=== PATIENT | female | born 1955 | race Caucasian/White ===

== ENCOUNTER 2019-02-06 06:40 | Inpatient (IN) | payer MEDICAID ==
[~2019-02-06] VITALS: Ht 160 cm; Wt 57.2 kg
[~2019-02-06 06:40] MED LIST: ALIR75PE SQ; AMLO10TA8 PO; ASPI325T17 PO; ATEN25TA PO; CETI10CA PO; ESTR1PAT4; ESTR30CR TP; HYDR25TA6 PO; OMEP-110 PO
[2019-02-06] MEDS ORDERED: ONDANSETRON 2MG/ML, 2ML ONE (07:08)
[2019-02-06] MEDS ORDERED: FAMOTIDINE 20 MG/2 ML ONE (07:09)
[2019-02-06] MEDS ORDERED: MORPHINE SULFATE 4 MG/ML, 1ML ONE (07:09)
[2019-02-06] MEDS ORDERED: SODIUM CHLORIDE FLUSH 10ML SYR IVF ONE (07:30)
[2019-02-06] MEDS ORDERED: MORPHINE SULFATE 4 MG/ML, 1ML IVPush PRN (07:30)
[2019-02-06] MEDS ORDERED: SODIUM CHLORIDE 0.9% 1,000ML IVBOLUS ONE (07:30)
[2019-02-06] MEDS ORDERED: FAMOTIDINE 20 MG/2 ML IVP ONE (07:30)
[2019-02-06] MEDS ORDERED: ONDANSETRON 2MG/ML, 2ML IVPush ONE (07:30)
--- NOTE | 2019-02-06 07:37 | NUR ---
PT. IS A & O X 4 WITH C/O ABD PAIN WITH ASSOCIATED NAUSEA AND VOMITING FOR 2 WEEKS. PT. IS PINK,WARM AND DRY. LUNGS ARE CTA. MM ARE PINK AND MOIST WITH PULSES +2 THROUGHOUT. PT.'S ABD. IS SOFT AND FLAT WITH BS + X 4 QUADS. IV ACCESS ESTABLISHED. PT. WAS MEDICATED FOR PAIN ORDERED. LABS DRAWN AND SENT. US TECH AT THE BEDSIDE DOING HER US OF THE ABD. PT. IS RESTING WITH THE PULSE OX IN PLACE AND BP CUFF IN PLACE. SR ARE UP X 2. NS BOLUS IS INFUSING.
[2019-02-06 07:41] LABS: ALANINE AMINOTRANSFERASE 17 U/L (12-78); ALBUMIN 3.3 g/dL (3.4-5.0); CALCIUM 9.4 mg/dL (8.5-10.1); CHLORIDE 84 mmol/L (98-107); CREATININE 0.99 mg/dL (0.55-1.02)
[2019-02-06 07:42] LABS: BASOPHILS # (AUTO) 0.04 x10^3/uL (0-0.1); BASOPHILS % (AUTO) 0 % (0-1); EOSINOPHILS # (AUTO) 0.11 x10^3/uL (0-0.4); EOSINOPHILS % (AUTO) 1 % (1-7); LYMPHOCYTES # (AUTO) 1.72 x10^3/uL (1-3.4); LYMPHOCYTES % (AUTO) 16 % (22-44); MD NO; MEAN CORPUSCULAR HEMOGLOBIN 32.6 pg (27.0-34.8); MEAN CORPUSCULAR HGB CONC 33.8 g/dL (32.4-35.8); MEAN CORPUSCULAR VOLUME 96.7 fL (80-100); MEAN PLATELET VOLUME 7.8 fL (7.4-10.4); MONOCYTES # (AUTO) 0.99 x10^3/uL (0.2-0.8); MONOCYTES % (AUTO) 9 % (2-9); NEUTROPHILS # (AUTO) 7.68 x10^3/uL (1.8-6.8); NEUTROPHILS % (AUTO) 73 % (42-75); PLATELET COUNT 566 x10^3/uL (130-400); RED BLOOD COUNT 4.38 x10^6/uL (3.82-5.3)
[2019-02-06 07:45] LABS: ALKALINE PHOSPHATASE 86 U/L (45-117); BILIRUBIN,TOTAL 0.4 mg/dL (0.2-1.0); TOTAL PROTEIN 8.1 g/dL (6.4-8.2); TROPONIN I < 0.015 ng/mL (0.000-0.045)
[2019-02-06 07:48] LABS: ANION GAP 13 mmol/L (5-15)
[2019-02-06 08:08] LABS: CULTURE INDICATED? YES; MICROSCOPIC INDICATED
[2019-02-06] MEDS ORDERED: POTASSIUM CHLORIDE 40 MEQ in SODIUM CHLORIDE 0.9% 500 ML IV ONE ×3 (08:30→17:30)
--- NOTE | 2019-02-06 08:30 | NUR ---
PT. WAS PLACED ON THE MACHINE SPRAYER. MEDS ORDERED FROM PHARMACY. VSS. PT. IS RESTING WITHOUT CONCERNS.
--- NOTE | 2019-02-06 08:43 | NUR ---
PT.'S POTASSIUM IS INFUSING ON THE PUMP. PT. WAS AMBULATORY TO THE RESTROOM. PT. REMAINS MONITORED AND IS RESTING WITHOUT CONCERNS.
--- NOTE | 2019-02-06 09:51 | NUR ---
PT. REMAINS MONITORED. PT. IS RESTING WITHOUT CONCERNS.
[2019-02-06] MEDS: LACTATED RINGERS 1,000 ML IV SCH ×2 (10:30→17:10)
[2019-02-06] MEDS ORDERED: hydrALAzine 20 MG/ML, 1ML IVPush PRN (10:30)
[2019-02-06] MEDS ORDERED: LABETALOL 5MG/ML, 20ML IVPush PRN (10:30)
[2019-02-06] MEDS ORDERED: ACETAMINOPHEN 325 MG TABLET PO PRN (10:30)
[2019-02-06] MEDS: THIAMINE 100MG TABLET PO SCH ×2 (10:30→19:59)
[2019-02-06] MEDS ORDERED: PROMETHAZINE 25 MG/ML, 1ML IM PRN (10:30)
--- NOTE | 2019-02-06 10:50 | NUR ---
NO CHANGES AT THIS TIME. PT. WAS AMBULATORY TO THE RESTROOM. PT. REMAINS MONITORED. PT. HAS NO COMPLAINTS.
[2019-02-06] MEDS ORDERED: LACTATED RINGERS 1,000 ML IVBOLUS ONE (11:00)
--- NOTE | 2019-02-06 11:13 | NUR ---
REPORT WAS CALLED TO STANLEY TIERNEY. PT. IS READY FOR TRANSPORT.
[2019-02-06] MEDS ORDERED: OMNIPAQUE 350 MG/ML, 100ML BOTTLE ONE (11:23)
[2019-02-06 12:11] VITALS: BP 92/60
[2019-02-06] MEDS: NICOTINE 7 MG/24 HR PATCH.TD24 TD SCH (12:30)
[2019-02-06] MEDS ORDERED: CEFTRIAXONE PMX 1GM/50ML 50 ML IV SCH (12:30)
[2019-02-06] MEDS: HEPARIN 5,000 UNITS/ML, 1ML SQ SCH ×2 (13:03→20:58)
[2019-02-06] MEDS: ONDANSETRON 2MG/ML, 2ML IVPush PRN (15:00)
[2019-02-06] MEDS: morphine SULFATE 10 MG/ML, 1ML IVPush PRN ×2 (15:05→20:58)
[2019-02-06] MEDS: MEROPENEM 1 GM in SODIUM CHLORIDE 0.9% 100 ML IV SCH (16:12)
[2019-02-06 16:33] LABS: CHLORIDE 96 mmol/L (98-107)
[2019-02-06 16:40] LABS: ANION GAP 14 mmol/L (5-15); CALCIUM 8.5 mg/dL (8.5-10.1); CREATININE 0.62 mg/dL (0.55-1.02)
[2019-02-06 20:47] VITALS: BP 95/61
[2019-02-06 21:27] LABS: HCG UR SG 1.027 (1.003-1.030)
[2019-02-06 22:24] LABS: ANION GAP 12 mmol/L (5-15); CALCIUM 8.1 mg/dL (8.5-10.1); CHLORIDE 100 mmol/L (98-107); CREATININE 0.66 mg/dL (0.55-1.02)
[2019-02-07] MEDS ORDERED: MAGNESIUM SULFATE PMX 2GM/50ML 50 ML IV ONE
[2019-02-07] MEDS: LACTATED RINGERS 1,000 ML IV SCH ×3 (00:17→17:26)
[2019-02-07] MEDS: MEROPENEM 1 GM in SODIUM CHLORIDE 0.9% 100 ML IV SCH ×3 (00:25→17:26)
[2019-02-07 00:48] VITALS: BP 91/52
[2019-02-07] MEDS: morphine SULFATE 10 MG/ML, 1ML IVPush PRN ×4 (02:33→19:00)
[2019-02-07 05:56] LABS: ANION GAP 10 mmol/L (5-15); CALCIUM 7.8 mg/dL (8.5-10.1); CHLORIDE 101 mmol/L (98-107)
[2019-02-07 05:59] LABS: ALANINE AMINOTRANSFERASE 10 U/L (12-78); ALKALINE PHOSPHATASE 54 U/L (45-117); BILIRUBIN,TOTAL 0.4 mg/dL (0.2-1.0); CREATININE 0.49 mg/dL (0.55-1.02); TOTAL PROTEIN 5.2 g/dL (6.4-8.2)
[2019-02-07 06:13] LABS: BASOPHILS # (AUTO) 0.04 x10^3/uL (0-0.1); BASOPHILS % (AUTO) 1 % (0-1); EOSINOPHILS % (AUTO) 4 % (1-7); LYMPHOCYTES # (AUTO) 2.16 x10^3/uL (1-3.4); LYMPHOCYTES % (AUTO) 29 % (22-44); MD NO; MEAN CORPUSCULAR HEMOGLOBIN 33.4 pg (27.0-34.8); MEAN CORPUSCULAR VOLUME 98.3 fL (80-100); MEAN PLATELET VOLUME 7.7 fL (7.4-10.4); MONOCYTES # (AUTO) 0.67 x10^3/uL (0.2-0.8); MONOCYTES % (AUTO) 9 % (2-9); NEUTROPHILS # (AUTO) 4.34 x10^3/uL (1.8-6.8); NEUTROPHILS % (AUTO) 58 % (42-75); PLATELET COUNT 452 x10^3/uL (130-400); RED BLOOD COUNT 3.25 x10^6/uL (3.82-5.3); RED CELL DISTRIBUTION WIDTH 12.8 % (9.6-15.2)
[2019-02-07] MEDS: ONDANSETRON 2MG/ML, 2ML IVPush PRN ×2 (06:28→13:41)
[2019-02-07] MEDS: HEPARIN 5,000 UNITS/ML, 1ML SQ SCH ×3 (06:30→20:56)
[2019-02-07 07:34] VITALS: BP 89/54
[2019-02-07] MEDS ORDERED: POTASSIUM CHLORIDE 40 MEQ in SODIUM CHLORIDE 0.9% 500 ML IV ONE ×2 (08:00)
[2019-02-07] MEDS: PANTOPRAZOLE 40 MG IV IVPush SCH ×2 (09:29→20:55)
[2019-02-07] MEDS: THIAMINE 100MG TABLET PO SCH ×2 (09:30→20:56)
[2019-02-07] MEDS: NICOTINE 7 MG/24 HR PATCH.TD24 TD SCH (12:30)
[2019-02-07 13:26] VITALS: BP 94/59
[2019-02-07 19:40] VITALS: BP 102/66
[2019-02-08] MEDS: LACTATED RINGERS 1,000 ML IV SCH ×3 (00:13→13:48)
[2019-02-08] MEDS: morphine SULFATE 10 MG/ML, 1ML IVPush PRN ×2 (00:14→07:34)
[2019-02-08] MEDS: ONDANSETRON 2MG/ML, 2ML IVPush PRN ×2 (00:25→17:48)
[2019-02-08] MEDS: MEROPENEM 1 GM in SODIUM CHLORIDE 0.9% 100 ML IV SCH ×2 (01:40→10:16)
[2019-02-08 02:47] VITALS: BP 106/67
[2019-02-08] MEDS: HEPARIN 5,000 UNITS/ML, 1ML SQ SCH (06:02)
[2019-02-08 06:15] LABS: CHLORIDE 98 mmol/L (98-107)
[2019-02-08 06:40] LABS: ALANINE AMINOTRANSFERASE 8 U/L (12-78); ALBUMIN 2.1 g/dL (3.4-5.0); ALKALINE PHOSPHATASE 53 U/L (45-117); ANION GAP 10 mmol/L (5-15); BILIRUBIN,TOTAL 0.3 mg/dL (0.2-1.0); CREATININE 0.49 mg/dL (0.55-1.02); TOTAL PROTEIN 5.4 g/dL (6.4-8.2)
[2019-02-08 07:14] LABS: BASOPHILS # (AUTO) 0.05 x10^3/uL (0-0.1); BASOPHILS % (AUTO) 1 % (0-1); EOSINOPHILS # (AUTO) 0.34 x10^3/uL (0-0.4); EOSINOPHILS % (AUTO) 4 % (1-7); LYMPHOCYTES # (AUTO) 2.48 x10^3/uL (1-3.4); LYMPHOCYTES % (AUTO) 30 % (22-44); MD NO; MEAN CORPUSCULAR VOLUME 97.3 fL (80-100); MEAN PLATELET VOLUME 8.2 fL (7.4-10.4); MONOCYTES # (AUTO) 0.91 x10^3/uL (0.2-0.8); MONOCYTES % (AUTO) 11 % (2-9); NEUTROPHILS # (AUTO) 4.48 x10^3/uL (1.8-6.8); NEUTROPHILS % (AUTO) 54 % (42-75); PLATELET COUNT 474 x10^3/uL (130-400); RED BLOOD COUNT 3.35 x10^6/uL (3.82-5.3); RED CELL DISTRIBUTION WIDTH 12.9 % (9.6-15.2)
[2019-02-08 07:58] VITALS: BP 105/68
[2019-02-08] MEDS: ENOXAPARIN 40 MG/0.4 ML SQ SCH (08:51)
[2019-02-08] MEDS: THIAMINE 100MG TABLET PO SCH ×2 (08:51→20:55)
[2019-02-08] MEDS: PANTOPRAZOLE 20MG TABLET PO SCH ×2 (08:51→20:55)
[2019-02-08] MEDS: POTASSIUM CHLORIDE 20 MEQ TAB.ER.PRT PO SCH ×2 (08:52→17:13)
[2019-02-08] MEDS: NICOTINE 7 MG/24 HR PATCH.TD24 TD SCH (11:21)
[2019-02-08 13:20] VITALS: BP 102/66
[2019-02-08] MEDS ORDERED: POLYETHYLENE GLYCOL 17 GM PACKET NG PRN (17:30)
[2019-02-08] MEDS ORDERED: BISACODYL 10 MG SUPP PR PRN (17:30)
[2019-02-08 20:51] VITALS: BP 108/61
[2019-02-08] MEDS: DOCUSATE 100 MG CAPSULE PO SCH (20:55)
[2019-02-08] MEDS: SULFAMETH./TRIMETHOPRIM DS 800MG/160MG TABLET PO SCH (20:55)
[2019-02-09 02:59] VITALS: BP 97/57
[2019-02-09] MEDS: LACTATED RINGERS 1,000 ML IV SCH (03:00)
[2019-02-09 04:35] LABS: BASOPHILS # (AUTO) 0.07 x10^3/uL (0-0.1); BASOPHILS % (AUTO) 1 % (0-1); EOSINOPHILS # (AUTO) 0.41 x10^3/uL (0-0.4); EOSINOPHILS % (AUTO) 6 % (1-7); LYMPHOCYTES # (AUTO) 2.42 x10^3/uL (1-3.4); LYMPHOCYTES % (AUTO) 32 % (22-44); MD NO; MEAN CORPUSCULAR HEMOGLOBIN 33.4 pg (27.0-34.8); MEAN CORPUSCULAR HGB CONC 34.5 g/dL (32.4-35.8); MEAN CORPUSCULAR VOLUME 96.9 fL (80-100); MEAN PLATELET VOLUME 7.7 fL (7.4-10.4); MONOCYTES # (AUTO) 0.89 x10^3/uL (0.2-0.8); MONOCYTES % (AUTO) 12 % (2-9); NEUTROPHILS % (AUTO) 49 % (42-75); PLATELET COUNT 471 x10^3/uL (130-400); RED BLOOD COUNT 3.28 x10^6/uL (3.82-5.3); RED CELL DISTRIBUTION WIDTH 13.1 % (9.6-15.2)
[2019-02-09 04:49] LABS: ALBUMIN 2.1 g/dL (3.4-5.0); ANION GAP 6 mmol/L (5-15); CALCIUM 8.2 mg/dL (8.5-10.1); CHLORIDE 99 mmol/L (98-107)
[2019-02-09 04:52] LABS: ALANINE AMINOTRANSFERASE 8 U/L (12-78); ALKALINE PHOSPHATASE 51 U/L (45-117); BILIRUBIN,TOTAL 0.2 mg/dL (0.2-1.0); CREATININE 0.56 mg/dL (0.55-1.02); TOTAL PROTEIN 5.4 g/dL (6.4-8.2)
[2019-02-09 06:58] VITALS: BP 97/62
[2019-02-09] MEDS: DOCUSATE 100 MG CAPSULE PO SCH (07:57)
[2019-02-09] MEDS: THIAMINE 100MG TABLET PO SCH (07:57)
[2019-02-09] MEDS: SULFAMETH./TRIMETHOPRIM DS 800MG/160MG TABLET PO SCH (07:57)
[2019-02-09] MEDS: ENOXAPARIN 40 MG/0.4 ML SQ SCH (07:58)
[2019-02-09] MEDS: PANTOPRAZOLE 20MG TABLET PO SCH (07:58)
[2019-02-09] MEDS: POTASSIUM CHLORIDE 20 MEQ TAB.ER.PRT PO SCH (07:59)
[2019-02-09] MEDS ORDERED: ATEN50TA41 PO (11:58)
[2019-02-09] MEDS ORDERED: ONDA4TAB7 PO (11:58)
[2019-02-09] MEDS: NICOTINE 7 MG/24 HR PATCH.TD24 TD SCH (12:26)
[2019-02-09 12:38] VITALS: BP 97/63
== END 2019-02-09 15:35 | disposition home or self-care (01) | DRG 439 ==
LOC: ED 08:59 → EDIP 09:00 → ED 09:03 → 4WST 11:53 → DCLOUNGE 02-09 15:23
PROVIDERS: ADMIT Internal Medicine; ATTEND Internal Medicine
DX: K85.20 Alcohol induced acute pancreatitis without necrosis or infection (principal); E87.1 Hypo-osmolality and hyponatremia; E44.1 Mild protein-calorie malnutrition; E86.0 Dehydration; E87.6 Hypokalemia; E86.1 Hypovolemia; D47.3 Essential (hemorrhagic) thrombocythemia; K59.00 Constipation, unspecified; I10 Essential (primary) hypertension; I95.9 Hypotension, unspecified; K21.9 Gastro-esophageal reflux disease without esophagitis; K76.0 Fatty (change of) liver, not elsewhere classified; I71.4 Abdominal aortic aneurysm, without rupture; Z68.22 Body mass index [BMI] 22.0-22.9, adult; Z87.440 Personal history of urinary (tract) infections; Z79.899 Other long term (current) drug therapy; Z87.891 Personal history of nicotine dependence; Z90.710 Acquired absence of both cervix and uterus; Z90.89 Acquired absence of other organs
CPT/HCPCS: 36415; 99285; J3490; 71045; 74177; 76700; 80048; 80053; 80307; 81001; 81025; 83690; 83735; 84484; 85025; 87086; 93005; 96374; 96375; 96376; G0378; J1644; J1650; J2185; J2405; J2550; J3480; Q9967; C9113; J2270; J3475; J7030; J7040; J7120

== ENCOUNTER 2020-01-30 19:04 | Emergency (ER) | payer BC, OTHER ==
[~2020-01-30] VITALS: Ht 160 cm; Wt 56.7 kg
[~2020-01-30 19:04] MED LIST changes: +ATEN50TA41 PO; +ONDA4TAB7 PO
--- NOTE | 2020-01-30 20:35 | NUR ---
RN to bedside, midlevel provider shortly behind. Patient alert, oriented, answers questions clearly and concisely. Pupils are equal and reactive and patient is at baseline mentatin per family member. Orders placed for imaging of head and neck. Awaiting donor center technician to bedside.
--- NOTE | 2020-01-30 21:00 | NUR ---
REPORT RECEIVED FROM KELSY BERGMAN
[2020-01-30 21:14] VITALS: BP 106/82
== END 2020-01-30 21:35 | disposition home or self-care (01) ==
LOC: ED 20:52
DX: S06.0X0A Concussion without loss of consciousness, initial encounter (principal); F07.81 Postconcussional syndrome; H53.8 Other visual disturbances; R51 Headache; I10 Essential (primary) hypertension; K21.9 Gastro-esophageal reflux disease without esophagitis; Z90.710 Acquired absence of both cervix and uterus; W01.198A Fall on same level from slipping, tripping and stumbling with subsequent striking against other object, initial encounter; Y93.89 Activity, other specified; Y92.009 Unspecified place in unspecified non-institutional (private) residence as the place of occurrence of the external cause; Y99.8 Other external cause status
CPT/HCPCS: 70450; 72125; 99285

== ENCOUNTER → 2021-07-14 | Outpatient (CLI) | payer BC | END | disposition home or self-care (01) | LOC: CFH 07:58 | PROVIDERS: ATTEND Internal Medicine Cardiovascular Disease | DX: I36.1 Nonrheumatic tricuspid (valve) insufficiency (principal); R07.9 Chest pain, unspecified; I71.4 Abdominal aortic aneurysm, without rupture; I73.9 Peripheral vascular disease, unspecified; R09.89 Other specified symptoms and signs involving the circulatory and respiratory systems | CPT/HCPCS: 78452; 93017; 93306; A9502; J0280; J2785 ==